=== PATIENT | male | born 1975 | race African-American/Black ===

== ENCOUNTER 2017-11-07 21:02 | Emergency (ER) | payer MEDICAID ==
[~2017-11-07] VITALS: Ht 190.5 cm; Wt 147.0 kg
[~2017-11-07 21:02] MED LIST: NORVASC
[2017-11-07 23:59] VITALS: BP 134/78
[2017-11-08 00:17] LABS: CLARITY URINE CLEAR (CLEAR); COLOR URINE YELLOW (YELLOW); KETONES URINE TRACE (NEGATIVE); LEUKOCYTE ESTERASE URINE NEGATIVE (NEGATIVE); NITRITE URINE NEGATIVE (NEGATIVE); OCCULT BLOOD URINE NEGATIVE (NEGATIVE); PH URINE 5.5 (4.5-8.0); PROTEIN URINE TRACE (NEGATIVE); SPECIFIC GRAVITY URINE 1.029 (1.005-1.030)
[2017-11-08] MEDS ORDERED: CEFTRIAXONE SODIUM 250 MG/VIAL IM ONE (00:45)
[2017-11-08] MEDS ORDERED: ACYCLOVIR 400 MG TABLET PO ONE (00:45)
[2017-11-08] MEDS ORDERED: AZITHROMYCIN 500 MG TABLET PO ONE (00:45)
== END 2017-11-08 01:49 | disposition home or self-care (01) ==
LOC: ER 22:38
DX: A64 Unspecified sexually transmitted disease (principal); B00.1 Herpesviral vesicular dermatitis; I10 Essential (primary) hypertension; E66.9 Obesity, unspecified; Z98.84 Bariatric surgery status; Z68.41 Body mass index [BMI] 40.0-44.9, adult; Z88.6 Allergy status to analgesic agent; Z88.8 Allergy status to other drugs, medicaments and biological substances
CPT/HCPCS: 81003; 96372; 99283; J0696; Z7610

== ENCOUNTER 2018-09-22 12:02 | Inpatient (IN) | payer MEDICAID ==
[~2018-09-22] VITALS: Ht 190.5 cm; Wt 158.8 kg
[2018-09-22] MEDS ORDERED: AMLO5TAB88 MT (12:26)
[2018-09-22] MEDS ORDERED: ONDANSETRON HCL 4MG/2ML INJ IV STA (15:15)
[2018-09-22] MEDS ORDERED: VISCOUS LIDOCAINE 2% 15 ML UDC PO ONE (15:15)
[2018-09-22] MEDS ORDERED: ASPIRIN 81MG TABLET PO ONE (15:15)
[2018-09-22] MEDS ORDERED: MAGNESIUM/ALUMINUM HYDROXIDE/SIMETHICONE 30ML UDC PO ONE (15:15)
[2018-09-22 15:34] LABS: BASOPHILS % 1.1 % (0.0-2.0); EOSINOPHILS % 2.1 % (0.0-5.0); HEMATOCRIT. 31.9 % (42.0-52.0); HEMOGLOBIN. 9.9 g/dL (14.0-18.0); LYMPHOCYTES % 29.7 % (20.0-50.0); MEAN CORPUSCULAR HEMOGLOBIN 25.6 pg (28.0-32.0); MEAN CORPUSCULAR VOLUME 82.4 fL (80.0-94.0); MEAN PLATELET VOLUME 8.1 fl (7.4-10.4); MONOCYTES % 10.1 % (2.0-8.0); PLATELET 333 x1000/uL (130-400); RED BLOOD CELL COUNT 3.87 mill/uL (4.7-6.1); RED CELL DISTRIBUTION WIDTH 15.6 % (11.6-14.6)
[2018-09-22 15:37] LABS: CHLORIDE 109 mEq/L (98-107)
[2018-09-22 23:30] VITALS: BP_SYST 156; BP_SYST 170; BP_DIAS 90; BP_DIAS 97
[2018-09-23] MEDS ORDERED: MORPHINE SULFATE 4 MG/ML CPJ (NOT FOR IM USE) IV PRN (01:00)
[2018-09-23] MEDS: AMLODIPINE 5MG TABLET PO SCH ×2 (01:08→08:16)
[2018-09-23 04:00] VITALS: BP 126/61
[2018-09-23 08:00] VITALS: BP 146/87
[2018-09-23 12:00] VITALS: BP 146/86
[2018-09-23] MEDS ORDERED: IPRATROPIUM/ALBUTEROL 0.5-3(2.5)MG/3ML NEB HHN PRN (15:45)
[2018-09-23 16:00] VITALS: BP 133/80
[2018-09-23 20:00] VITALS: BP 133/77
[2018-09-23 20:00] LABS: FOLIC ACID (FOLATE) SERUM 6.6 ng/mL (>5.38)
[2018-09-24] VITALS: BP 131/71
[2018-09-24] MEDS: AMLODIPINE 5MG TABLET PO SCH (00:06)
[2018-09-24 04:00] VITALS: BP 145/83
[2018-09-24 08:00] VITALS: BP 152/90
[2018-09-24] MEDS ORDERED: FUROSEMIDE 20MG/2ML VIAL IVP SCH (09:00)
[2018-09-24 13:13] LABS: HEMATOCRIT 35.5 % (42.0-52.0); MEAN CORPUSCULAR HEMOGLOBIN 25.2 pg (28.0-32.0); MEAN CORPUSCULAR VOLUME 81.6 fL (80.0-94.0); PLATELET 360 x1000/uL (130-400); RED BLOOD CELL COUNT 4.35 mill/uL (4.7-6.1); RED CELL DISTRIBUTION WIDTH 15.8 % (11.6-14.6)
[2018-09-24 13:28] LABS: CHLORIDE 107 mEq/L (98-107)
[2018-09-24] MEDS ORDERED: AMLODIPINE 5MG TABLET PO SCH (21:00)
== END 2018-09-24 14:38 | disposition home or self-care (01) | DRG 145 ==
LOC: ER 12:02 → 8WST 18:12 → EDBEDREQ 18:13 → ENRESERV 22:02
PROVIDERS: ADMIT Internal Medicine; ATTEND Internal Medicine
DX: J20.8 Acute bronchitis due to other specified organisms (principal); N17.9 Acute kidney failure, unspecified; E66.01 Morbid (severe) obesity due to excess calories; J45.901 Unspecified asthma with (acute) exacerbation; Z68.41 Body mass index [BMI] 40.0-44.9, adult; J06.9 Acute upper respiratory infection, unspecified; R07.89 Other chest pain; D50.9 Iron deficiency anemia, unspecified; E66.9 Obesity, unspecified; I10 Essential (primary) hypertension; Z98.84 Bariatric surgery status; Z88.5 Allergy status to narcotic agent; Z88.1 Allergy status to other antibiotic agents; Z88.8 Allergy status to other drugs, medicaments and biological substances
CPT/HCPCS: 36415; 71045; 80061; 82270; 82607; 82728; 82746; 83036; 83540; 83550; 83880; 84443; 84484; 85027; 93005; 93970; 99285; J1940; J2405

== ENCOUNTER 2022-12-04 08:34 | Emergency (ER) | payer MEDICAID, OTHER ==
[~2022-12-04] VITALS: Ht 190.5 cm; Wt 132.0 kg
[~2022-12-04 08:34] MED LIST changes: +ACET-2708 MT; +AMLO5TAB88 MT; +GUAI237L83 MT; -NORVASC
[2022-12-04 08:44] VITALS: BP 141/90
== END 2022-12-04 10:06 | disposition home or self-care (01) ==
LOC: ER 08:34
DX: M25.561 Pain in right knee (principal); I10 Essential (primary) hypertension; Z88.5 Allergy status to narcotic agent; Z88.6 Allergy status to analgesic agent; Z88.8 Allergy status to other drugs, medicaments and biological substances
CPT/HCPCS: 73560; 73610; 99284; L1830; Z7610